=== PATIENT | male | born 1990 | race Hispanic/Latino ===

== ENCOUNTER 2023-06-21 19:09 | Emergency (ER) | payer BC, SELFPAY ==
[2023-06-21 19:12] VITALS: BP 135/92
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
[2023-06-21] MEDS: MOTRIN 600 MG PO (20:01)
[2023-06-21] MEDS: PERCOCET 5/325 1 TABLET PO (20:01)
== END 2023-06-21 20:22 | disposition home or self-care (01) ==
LOC: EMR 19:09
PROVIDERS: EMERGENCY PHYSICIAN Emergency Medicine
DX: T23.251A Burn of second degree of right palm, initial encounter (principal); X08.8XXA Exposure to other specified smoke, fire and flames, initial encounter; F17.200 Nicotine dependence, unspecified, uncomplicated
CPT/HCPCS: 99282